=== PATIENT | female | born 1940 | race Caucasian/White ===

== ENCOUNTER 2017-02-19 13:57 | Outpatient (RCR) | payer MEDICARE, MEDICAID ==
[2017-01-20 10:50] LABS: PLATELET COUNT, AUTOMATED 250 K/uL (150-450)
--- NOTE | 2017-01-20 14:33 | RADIOLOGY IMAGING REPORT ---
FACILITY: [facility] [place] PATIENT NAME: Daija Mcgill : 1940 MR: [id number] V: [id number] EXAM DATE: ORDERING PHYSICIAN: JENNIFER SERRATO TECHNOLOGIST: Location: [facility] Patient: Daija Mcgill : 1940 Visit/Account:[id number] Date of Sevice: 01/20/2017 CHEST W W/O CONTRAST History: Follow-up from prior abnormal chest CT, history of breast cancer ADDITIONAL CLINICAL HISTORY: None TECHNIQUE: Contiguous axial images were performed through the chest to the level of the adrenal gla nds with and without IV contrast. Coronal and sagittal reformatting was also performed. Dose Loweri ng Technique One of the following dose optimization techniques was utilized in the performance of this exam: Autom ated exposure control; adjustment of the mA and/or kV according to the patient's size; or use of an i terative reconstruction technique. Specific details can be referenced in the facility's radiology C T exam operational policy. Contrast: 75 mL Isovue-370 COMPARISON STUDIES: September 03, 2016. Lungs / Pleura: Ill-defined interstitial thickening in the lateral right upper lobe image 20 appear s unchanged from prior exams dating back to 2010. Small groundglass opacity in the anterior right middle lobe image 61 appears stable Mixed ground glass and interstitial nodule posterior right lower lobe image 64 measures approximately 2.7 x 2.2 cm and appears well totally unchanged when measured in the same tissue planes. Interstitial thickening previously noted in the inferior most aspect the right upper lobe is no longe r identified. 3 mm noncalcified micronodule lateral aspect right middle lobe is unchanged best seen on image 63. Sequelae from left upper lobectomy again noted. There is a diffuse centrilobular emphysema with an u pper lobe predominance. No evidence of pleural effusions. Mediastinum/nodes: negative. Heart and vessels: Atherosclerotic calcifications in the thoracic aorta and branch vessels including the coronary arteries Musculoskeletal / Body wall: S-shaped scoliosis of the thoracic spine with moderate spondylotic marco nges. Old bilateral rib fractures. The sequelae of prior left thoracotomy Partially calcified soft tissue nodule within the deep aspect of the upper outer quadrant of the left breast appear similar to the prior examination Upper abdomen: Postsurgical changes from a cholecystectomy prominent intra and extrahepatic biliary ductal dilatation similar to the prior examination small hypoattenuating lesions in the kidney too s mall to characterize diverticulosis of the splenic flexure IMPRESSION: Post surgical changes from left breast lumpectomy and left upper lobectomy. The previously described rounded semisolid versus ground glass opacity posterior aspect of the right lower lobe appears unchanged. This could represent the sequelae from a previous infectious/inflammat ory process although continued follow-up recommended to show stability in light of patient's clinical history Ill-defined focus of interstitial thickening previously described in the inferior right upper lobe fraser s resolved Old bilateral rib fractures Additional chronic findings as described Report Dictated By: Arelis Aragon MD at 01/20/2017 2:09 PM Report E-Signed By: Arelis Aragon MD at 01/20/2017 2:29 PM WSN:[email or web address]
[~2017-02-19] VITALS: Ht 162.6 cm; Wt 61.9 kg
[~2017-02-19 13:57] MED LIST: ACE3 PO; ADV100/50 INH; ADV250/50 INH; ALB17R INH; APIX5TAB PO; CALC-852 PO; CEF300 PO; DEXTROSE 5%(*) 100 ML BAG 100 ML IVPB PRN; DICL-190 PO; EST42T PV; EXE25PT PO; FISH OIL1 CAP PO; GARL100T2 PO; IBAN150T6 PO; IBAN2.5T2 PO; IBU800 PO; IBUP-1618 PO; IPR14R INH; IPRUDR INH; KET10 PO; LEVO-3 PO; LEVO50 PO; LEVO500T83 PO; LIDOCAINE/SOD BICARB 8.4% SYR ID PRN; LOR5 PO; MED25 PO; MULT1CAP41 PO; NS(*) 0.9% 100 ML BAG 100 ML IVPB PRN; PER PO; TIO18R; TIO18R INH; TRA50 PO; TRAM-420 PO; VAR05PT PO
[2017-02-19 14:04] VITALS: BP 120/83
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
== END 2017-03-05 09:12 | disposition home or self-care (01) ==
LOC: ONC 13:57
PROVIDERS: ATTEND Nurse Practitioner Family
DX: Z85.3 Personal history of malignant neoplasm of breast (principal); Z85.118 Personal history of other malignant neoplasm of bronchus and lung; J44.9 Chronic obstructive pulmonary disease, unspecified; Z92.3 Personal history of irradiation; R05 Cough; R06.02 Shortness of breath; Z87.891 Personal history of nicotine dependence; Z79.899 Other long term (current) drug therapy
CPT/HCPCS: 71270; 85025; 86300; G0463; J7050; Q9967; 82040; 82247; 82310; 82374; 82435; 82565; 82947; 84075; 84132; 84155; 84295; 84450; 84460; 84520; 99212

== ENCOUNTER 2017-09-21 09:25 | Outpatient (RCR) | payer MEDICARE, MEDICAID ==
[~2017-09-21 09:25] MED LIST changes: -DEXTROSE 5%(*) 100 ML BAG 100 ML IVPB PRN; -LIDOCAINE/SOD BICARB 8.4% SYR ID PRN; -NS(*) 0.9% 100 ML BAG 100 ML IVPB PRN
--- NOTE | 2017-09-21 11:30 | RADIOLOGY IMAGING REPORT ---
FACILITY: [facility] PATIENT NAME: Daija Mcgill : 1940 MR: [id number] V: [id number] EXAM DATE: ORDERING PHYSICIAN: VOLODYMYR SCHWARTZ TECHNOLOGIST: Location: [facility] Patient: Daija Mcgill : 1940 Visit/Account:[id number] Date of Sevice: 09/21/2017 CHEST W/O CONTRAST History: Lung nodule TECHNIQUE: Contiguous axial images were performed through the chest to the level of the adrenal gla nds. No IV contrast was administered. Coronal and sagittal reformatting was also performed. Dose Lowe ring Technique One of the following dose optimization techniques was utilized in the performance of this exam: Autom ated exposure control; adjustment of the mA and/or kV according to the patient's size; or use of an i terative reconstruction technique. Specific details can be referenced in the facility's radiology C T exam operational policy. COMPARISON STUDIES: January 20, 2017. Lungs / Pleura: Diffuse centrilobular emphysema again seen throughout the lungs. Focal area of cystic bronchiectasis in the right upper lobe appears similar to the prior examination. Groundglass opacity and anterior right middle lobe also appears relatively stable. 3 mm calcified nodule lateral aspect right middle lobe is unchanged and is best seen on image 63 of s eries 3 The mixed solid and groundglass nodule posterior aspect of the right lower lobe appears increased in size now measuring 3.4 x 2.5 cm. Solid component now measures 1.3 x 1 cm as opposed to 0.8 x 0.9 cm Postsurgical changes from a left upper lobectomy again seen Mediastinum/nodes: Mediastinal structures not ideally evaluated due to lack of contrast although no gross evidence of pathologically enlarged hilar mediastinal lymph nodes Heart and vessels: Atherosclerotic calcifications of the thoracic aorta and branch vessels including the coronary arteries. .Musculoskeletal / Body wall: Old left-sided rib fractures Partially calcified soft tissue nodule within the deep aspect upper outer quadrant left breast appear similar to prior examination S-shaped scoliosis of the thoracic spine with moderate spondylotic changes Upper abdomen: Postsurgical changes from a cholecystectomy with prominent intra and extrahepatic bi le ducts similar to the prior examination. Hypoattenuating round lesion upper pole the right kidney is increased in size previous measuring 9 mm now measuring 1.7 cm although appears to be cystic IMPRESSION: Diffuse centrilobular emphysema Cystic bronchiectasis the right upper lobe appears similar to the prior study Groundglass opacity anterior right middle lobe and 3 mm noncalcified nodule lateral aspect right midd le lobe appears stable There is a mixed solid and groundglass nodule posterior aspect right lower lobe that has increased in size as described above. For nodules this size, consider CT at 3 months, PET/CT, or tissue sampling. Postsurgical changes from left upper lobectomy Additional chronic findings as described Report Dictated By: Arelis Aragon MD at 09/21/2017 11:06 AM Report E-Signed By: Arelis Aragon MD at 09/21/2017 11:25 AM WSN:[email or web address]
== END 2017-11-10 08:58 | disposition home or self-care (01) ==
LOC: ONC 09:25
PROVIDERS: ATTEND Internal Medicine Pulmonary Disease
DX: Z85.3 Personal history of malignant neoplasm of breast (principal); Z85.118 Personal history of other malignant neoplasm of bronchus and lung; J44.9 Chronic obstructive pulmonary disease, unspecified; Z92.3 Personal history of irradiation; R05 Cough; R06.02 Shortness of breath; Z87.891 Personal history of nicotine dependence; Z79.899 Other long term (current) drug therapy; J43.2 Centrilobular emphysema
CPT/HCPCS: 71250

== ENCOUNTER → 2017-11-12 | Outpatient (CLI) | payer MEDICARE, MEDICAID ==
[~2017-11-12] MED LIST changes: +GELATIN SPONGE 12-7MM ONE
--- NOTE | 2017-11-12 15:59 | RADIOLOGY IMAGING REPORT ---
FACILITY: [facility] PATIENT NAME: KAREN BROWN : [id number] MR: [id number] V: [id number] EXAM DATE: [id number] ORDERING PHYSICIAN: JULI QUIJANO TECHNOLOGIST: Yelitza Murillo PROCEDURE:BILATERAL DIGITAL SCREENING MAMMOGRAM WITH CAD ASSISTED INTERPRETATION & 3D TOMOSYNTHESIS COMPARISON:Prior mammograms 11/09/16, 11/07/15, 11/05/14, 11/01/13, 11/03/12. INDICATIONS:SCREENING FINDINGS: A small amount of fibroglandular tissue is seen throughout the breasts. The parenchymal pattern has remained stable allowing for difference in mammographic technique & patient positioning. Area of postsurgical scaring with architectural distortion in the upper outer quadrant of the Left breast from previous lumpectomy is again noted. Skin thickening is also noted over the Left breast from prior radiation therapy. There is no demonstration of malignant appearing mass, malignant appearing calcifications or other secondary sign of malignancy in either breast at this time. DIAGNOSTIC CATEGORY 2--BENIGN FINDING. RECOMMENDATIONS: ROUTINE MAMMOGRAM AND CLINICAL EVALUATION. IMPRESSION: BIRADS 2: Benign finding. No significant abnormality is seen. Dictated by: Arelis Aragon M.D. on 11/12/2017 at 11:46 Transcribed by: GLORIA on 11/12/2017 at 13:15 Approved by: Arelis Aragon M.D. on 11/12/2017 at 15:57 [facility]
== END ==
LOC: MAMO 04:04
PROVIDERS: ATTEND Internal Medicine Hematology
DX: Z12.31 Encounter for screening mammogram for malignant neoplasm of breast (principal)
CPT/HCPCS: 77063; 77067

== ENCOUNTER 2017-11-16 01:11 | Day surgery (SDC) | payer MEDICARE, MEDICAID ==
[~2017-11-16 01:11] MED LIST changes: -GELATIN SPONGE 12-7MM ONE
[2017-11-16 13:22] VITALS: BP 153/82
[2017-11-16 13:52] VITALS: BP 123/70
[2017-11-16 14:20] VITALS: BP 119/76
[2017-11-16 15:00] VITALS: BP 124/74
[2017-11-16 15:21] VITALS: BP 116/77
--- NOTE | 2017-11-16 15:37 | RADIOLOGY IMAGING REPORT ---
FACILITY: [facility] [place] PATIENT NAME: Daija Mcgill : 1940 MR: [id number] V: [id number] EXAM DATE: ORDERING PHYSICIAN: MESFIN FAIR TECHNOLOGIST: Location: [facility] [place] Patient: Daija Mcgill : 1940 Visit/Account:[id number] Date of Sevice: 11/16/2017 Single view of the chest Indication: Post biopsy. Comparison: CT images from today. Previous x-ray from November 15. Findings: Heart size within normal limits. Increased opacity is seen in the right midlung correlating to the perilesional hemorrhage following b iopsy. No evidence of pneumothorax. No new effusion. Left lung is clear. IMPRESSION: 1. Small perilesional hemorrhage following biopsy. No evidence of pneumothorax Report Dictated By: Mesfin Fair MD at 11/16/2017 3:17 PM Report E-Signed By: Mesfin Fair MD at 11/16/2017 3:33 PM WSN:[email or web address]
--- NOTE | 2017-11-16 15:50 | RADIOLOGY IMAGING REPORT ---
FACILITY: [facility] PATIENT NAME: Daija Mcgill : 1940 MR: [id number] V: [id number] EXAM DATE: ORDERING PHYSICIAN: VOLODYMYR SCHWARTZ TECHNOLOGIST: Location: [facility] [place] Patient: Daija Mcgill : 1940 Visit/Account:[id number] Date of Sevice: 11/16/2017 CT-guided right lower lobe biopsy Indication: Consolidation posterior right lower lobe Informed consent was obtained from the patient prior to the start of procedure. One of the following dose optimization techniques was utilized in the performance of this exam: Autom ated exposure control; adjustment of the mA and/or kV according to the patient's size; or use of an i terative reconstruction technique. Specific details can be referenced in the facility's radiology C T exam operational policy. Procedure: Following an official timeout documenting the patient's name and type of procedure to be p erformed the patient was placed supine on the CT table. The right back was prepped and draped in usua l sterile fashion. Initial CT was performed which demonstrates 60 percutaneous track to the subpleural consolidation rig ht lower lobe Skin was then draped in usual sterile fashion. 1% lidocaine was used for topical deeper soft tissue anesthesia. Under CT guidance, a 19-gauge coaxial needle was advanced into the lesion. Subsequently , three biopsies were obtained. Post images demonstrate tiny pneumothorax with a small amount of perilesional hemorrhage Patient received no IV sedation. DOSE: DAP was 938 mGy*cm2. Procedural time: 40 minutes IMPRESSION: Successful CT-guided lung biopsy of the right lower lobe nodular consolidation. Report Dictated By: Mesfin Peoples MD at 11/16/2017 3:34 PM Report E-Signed By: Mesfin Peoples MD at 11/16/2017 3:45 PM WSN:ALEX
== END 2017-11-16 15:45 | disposition home or self-care (01) ==
LOC: OR 01:11
PROVIDERS: ATTEND Internal Medicine Pulmonary Disease
DX: R91.1 Solitary pulmonary nodule (principal)
CPT/HCPCS: 71045; 77012; 88305; 88312; 88344

== ENCOUNTER → 2017-11-22 | Outpatient (CLI) | payer MEDICARE, MEDICAID ==
--- NOTE | 2017-11-22 15:16 | RADIOLOGY IMAGING REPORT ---
FACILITY: [facility] PATIENT NAME: Daija Mcgill : 1940 MR: [id number] V: [id number] EXAM DATE: ORDERING PHYSICIAN: RUSSELL COULTER TECHNOLOGIST: Location: [facility] [place] Patient: Daija Mcgill : 1940 Visit/Account:[id number] Date of Sevice: 11/22/2017 Exam type: CHEST PA AND LAT History: Cough, recent lung biopsy Comparison: AP chest November 16, 2017. Findings: There is subtle airspace consolidation in the right lower lobe slightly improved when compared to the prior study. This apparently represented a small amount of perilesional hemorrhage from recent biop sy. No pneumothorax is identified. Left lung appears well aerated. Mac was normal in size. Ther e is an S-shaped scoliosis of the thoracic spine. Surgical clips are present right upper quadrant of abdomen IMPRESSION: 1. Subtle airspace consolidation right lower lobe is slightly improved when compared to the prior st udy which apparently represented a small amount of perilesional hemorrhage from a recent biopsy. Report Dictated By: Arelis Aragon MD at 11/22/2017 3:08 PM Report E-Signed By: Arelis Aragon MD at 11/22/2017 3:12 PM WSN:ALEX
== END ==
LOC: RAD 14:01
PROVIDERS: ATTEND Family Medicine
DX: R05 Cough (principal)
CPT/HCPCS: 71046

== ENCOUNTER 2017-12-10 07:08 | Outpatient (RCR) | payer MEDICARE, MEDICAID ==
[2017-12-10 14:33] VITALS: BP 132/84
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
== END 2018-01-17 09:00 | disposition home or self-care (01) ==
LOC: ONC 07:08
PROVIDERS: ATTEND Internal Medicine Hematology
DX: C34.31 Malignant neoplasm of lower lobe, right bronchus or lung (principal); Z85.3 Personal history of malignant neoplasm of breast; J44.9 Chronic obstructive pulmonary disease, unspecified; Z87.891 Personal history of nicotine dependence; Z79.899 Other long term (current) drug therapy; R53.1 Weakness; R53.83 Other fatigue; R05 Cough
CPT/HCPCS: 99212

== ENCOUNTER → 2017-12-10 | Outpatient (CLI) | payer MEDICARE, MEDICAID | LOC: RESP 01:36 | PROVIDERS: ATTEND Internal Medicine Pulmonary Disease | DX: J98.4 Other disorders of lung (principal) | CPT/HCPCS: 94060; 94726; 94729 ==

== ENCOUNTER 2018-05-17 10:46 | Outpatient (RCR) | payer MEDICARE ==
[2018-04-26 14:59] VITALS: BP 112/64
[2018-04-26 16:33] LABS: PLATELET COUNT, AUTOMATED 270 K/uL (150-450)
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
--- NOTE | 2018-05-02 18:03 | RADIOLOGY IMAGING REPORT ---
FACILITY: [facility] PATIENT NAME: Daija Mcgill : 1940 MR: [id number] V: [id number] EXAM DATE: ORDERING PHYSICIAN: CARMELA QUAN TECHNOLOGIST: Location: [facility] Patient: Daija Mcgill : 1940 Visit/Account:[id number] Date of Sevice: 05/02/2018 EXAMINATION: CT Chest With Contrast 05/02/2018 11:00 AM HISTORY: History of left breast cancer. History of lung cancer. TECHNIQUE: Spiral scan was obtained through the chest during injection of nonionic iodinated intrav enous contrast. Contrast: 75 mL of IV Isovue 370. One of the following dose optimization techniques was utilized in the performance of this exam: Autom ated exposure control; adjustment of the mA and/or kV according to the patient's size; or use of an i terative reconstruction technique. Specific details can be referenced in the facility's radiology C T exam operational policy. COMPARISON STUDIES: 09/21/2017. FINDINGS: Lungs / pleura: Severe emphysema. Reticular markings associated with some bullous lucencies in the l ateral right upper lobe with a stable appearance, likely postinflammatory. Patient is status post at least partial lower lobectomy on the right. Pleural-parenchymal density in the right base has the a ppearance of postsurgical scarring. Stable minimal pleural parenchymal scarring anteromedially in th e left lung in this patient status post left upper lobectomy. No acute finding on the left. Mediastinum / jonathan: Negative Heart / pericardium: Small amount of pericardial fluid. Vessels: Atherosclerosis includes coronary disease. Musculoskeletal / Body wall: Nodularity with calcifications and/or clips in the deep lateral left devi ast likely reflects lumpectomy site. There is bony bridging between the posterior left fifth and six th ribs with partial resection in the posterior left seventh and additional old rib fractures lateral ly. Degenerative changes in the spine with scoliotic curvature. No acute bony finding. Lymph node assessment: Nonspecific mediastinal lymph nodes. No clear adenopathy. Lower neck: negative Upper abdomen: No focal liver lesion. Prior cholecystectomy with stable extrahepatic biliary promine nce. No adrenal nodule. Renal cortical cysts. Diverticulosis of visualized colon. IMPRESSION: 1. The patient has undergone at least partial right lower lobectomy since last September with unremarka ble postsurgical appearance. 2. Stable postsurgical appearance on the left status post left upper lobectomy. 3. Additional chronic findings, as above. Report Dictated By: Anibal Gray MD at 05/02/2018 5:50 PM Report E-Signed By: Anibal Gray MD at 05/02/2018 6:00 PM WSN:[id number]
[2018-05-03 16:06] VITALS: BP 137/81
--- NOTE | 2018-05-04 05:01 | ONCOLOGY FOLLOW UP NOTE ---
EVENT DATE: May 03, 2018 CHIEF COMPLAINT/REASON FOR EVALUATION Patient is here to go over the results of a CT scan of the thorax. HISTORY OF PRESENT ILLNESS Reference is made to my consultation from last week. The question at this time is whether the patient would or would not benefit from focal radiotherapy to the site of surgical resection, since she has a 1 mm margin. The patient underwent segmentectomy due to limited respiratory reserve/underlying COPD. The CT scan of the thorax was reviewed directly on the monitor with the patient. She has no evidence of metastatic disease on the study, and the radiologist interpreted the study as essentially normal. That said, the study is actually abnormal. There is a small area of pleural thickening at the site where the tumor was excised, which may or may not contain malignant cells. There is also scarring present along the surgical resection suture line. That area measures 5 to 8 mm in various dimensions and also may or may not contain malignant cells. I certainly would not state that the study was normal. Their radiologists do comment appropriately that the patient did have nonspecific postsurgical changes from the partial right lower lobe lobectomy (VATS segmentectomy, actually). Although this study was helpful, I believe that a PET/CT scan would now be more definitive in order to discern whether the patient does or does not have tumor cell activity at this site. She certainly has a risk of local recurrence which should be in the 24% to 52% range based on historical patients who have been treated with segmentectomy with stage I or stage II disease, as referenced in the consult. Patient is fully agreeable to the PET/CT scan, which will be obtained within the next two weeks in [place]. The patient will be seen a week after the study is obtained to carefully review the findings and make final recommendations. ADDENDUM The radiologist used the word "postsurgical scarring." I think that that attests well to the difficulty in interpreting these studies without serial examinations. I suspect that the PET/CT scan should be accurate at this time, since the patient is out approximately six months from the date of surgical resection. She will also need that study before she sees her barrel endshake adjuster, Dr. Alston. The patient was surgically staged as a pathologic T1b tumor with a maximum size of the invasive tumor at 2 cm. This was a highly unusual case, in that the patient also had a 1 cm area of "infiltrate" around the primary solid mass on her initial radiographic studies. The latter was due to inflammatory changes in the lung tissue or tumor cell changes in the lung tissue as a result of the malignancy. MTDD
[~2018-05-17 10:46] MED LIST changes: +IOPAMIDOL 76% 100 ML INFUS BTL 100 ML ONE
[2018-05-17 10:55] VITALS: BP 123/69
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
== END 2018-07-18 15:50 | disposition home or self-care (01) ==
LOC: RAON 10:46
PROVIDERS: ATTEND Radiology Radiation Oncology
DX: Z85.118 Personal history of other malignant neoplasm of bronchus and lung (principal); Z85.3 Personal history of malignant neoplasm of breast; J44.9 Chronic obstructive pulmonary disease, unspecified; Z87.891 Personal history of nicotine dependence; Z79.899 Other long term (current) drug therapy
CPT/HCPCS: 36415; 71260; 77290; 85025; G0463; Q9967; 82040; 82247; 82310; 82374; 82435; 82565; 82947; 84075; 84132; 84155; 84295; 84450; 84460; 84520; 99202; 99212

== ENCOUNTER 2018-06-09 09:45 | Outpatient (RCR) | payer MEDICARE ==
[2018-03-18 11:23] VITALS: BP 135/80
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
[2018-04-07 15:06] VITALS: BP 144/76
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
[~2018-06-09 09:45] MED LIST changes: -IOPAMIDOL 76% 100 ML INFUS BTL 100 ML ONE
[2018-06-09 10:00] VITALS: BP 121/79
[2018-06-09 10:06] LABS: PLATELET COUNT, AUTOMATED 230 K/uL (150-450)
== END 2018-06-15 ==
LOC: SPU 09:45
PROVIDERS: ATTEND Internal Medicine Hematology
DX: C34.31 Malignant neoplasm of lower lobe, right bronchus or lung (principal); Z85.3 Personal history of malignant neoplasm of breast; J44.9 Chronic obstructive pulmonary disease, unspecified; Z87.891 Personal history of nicotine dependence; Z79.899 Other long term (current) drug therapy; R53.1 Weakness; R53.83 Other fatigue; R05 Cough; C50.912 Malignant neoplasm of unspecified site of left female breast
CPT/HCPCS: 36415; 82378; 85025; 86300; G0463; 82040; 82247; 82310; 82374; 82435; 82565; 82947; 84075; 84132; 84155; 84295; 84450; 84460; 84520; 99212

== ENCOUNTER → 2018-08-02 | Outpatient (CLI) | payer MEDICARE, MEDICAID ==
[~2018-08-02] MED LIST changes: +CEFPR500PT PO
== END ==
LOC: AUD 09:00
PROVIDERS: ATTEND Physician Assistant
DX: H91.90 Unspecified hearing loss, unspecified ear (principal)
CPT/HCPCS: 92557; 92570

== ENCOUNTER 2018-09-22 12:45 | Outpatient (RCR) | payer MEDICARE ==
[2018-07-01 14:49] VITALS: BP 132/75
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
[2018-09-22 13:26] LABS: PLATELET COUNT, AUTOMATED 227 K/uL (150-450)
== END 2018-09-28 ==
LOC: SPU 12:45
PROVIDERS: ATTEND Internal Medicine Hematology
DX: C34.31 Malignant neoplasm of lower lobe, right bronchus or lung (principal); Z85.3 Personal history of malignant neoplasm of breast; J44.9 Chronic obstructive pulmonary disease, unspecified; Z87.891 Personal history of nicotine dependence; Z79.899 Other long term (current) drug therapy
CPT/HCPCS: 36415; 82378; 85025; 86300; G0463; 82040; 82247; 82310; 82374; 82435; 82565; 82947; 84075; 84132; 84155; 84295; 84450; 84460; 84520; 99212